=== PATIENT | male | born 1975 | race Caucasian/White ===

== ENCOUNTER 2017-07-17 09:17 | Emergency (ER) | payer OTHER ==
[~2017-07-17] VITALS: Ht 180.3 cm; Wt 121.0 kg
[~2017-07-17 09:17] MED LIST: LORA10TA51 PO; NXM/40 PO
[2017-07-17 09:23] VITALS: BP 150/99; PULSE 77; TEMP 36.8; O2SAT 97; Ht 180.3 cm; Wt 121.0 kg
--- NOTE | 2017-07-17 16:59 | EMERGENCY ROOM VISIT NOTE ---
ED Visit Note First contact with patient: 09:41 Chief complaint: Retained ousmane in scalp. HPI: This 42-year-old white male presents to the ER for removal of retained ousmane in the scalp. The patient denies any fevers, chills, sweats, nausea, redness, streaking, purulent drainage, pain with palpation, or other signs of infection. They have been keeping the wound clean and protected as directed. Pain is rated as 0/10. [place] have been in place for 11 days. No other complaints. Medical history, past surgical history, family history, social history, current medications, allergies, and tetanus status: All are unchanged from previous exam. Please see the chart from the initial wound repair visit. Physical exam Vitals: Afebrile. Reviewed and filed in patient's chart General: Well-developed, well-nourished, middle-aged white male, in no acute distress. He looks his stated age. Sitting on the bed, alert and oriented. No visible discomfort. Skin: Warm and dry with good turgor. No rashes or lesions. Ousmane are in place. Wound edges are well approximated. No erythema, edema, ecchymosis, purulent drainage, or warmth. No significant discomfort with palpation. Area is nonfluctuant. Neurologic: Gross sensation is intact around the wound via soft touch. Capillary refill is intact and is equal to the surrounding tissue. Impression: Healing laceration, crown of the scalp Plan: Ousmane were removed without event. Wound remained closed. No Steri- Strips were needed. Wound care precautions were reviewed. Watch for any signs of infection, or separation. Return to the ER as needed. Tylenol as needed for any discomfort. Elevated BP is thought to be situational. He may have it rechecked with his PCP if desired. Current/Historical Medications Scheduled Esomeprazole Magnesium (Nexium), 1 CAP PO DAILY Loratadine (Claritin), 10 MG PO DAILY Allergies Coded Allergies: Crab (Unverified Allergy, Unknown, ANAPHYLAXIS, 07/07/17) Vital Signs Date Time Temp Pulse Resp B/P (MAP) Pulse Ox O2 Delivery O2 Flow Rate FiO2 07/17/17 09:23 36.8 77 18 150/99 97 Departure Information Impression Primary Impression: Encounter for removal of ousmane Dispostion Home / Self-Care Condition GOOD Referrals No Doctor, Assigned (PCP) Forms HOME CARE DOCUMENTATION FORM, IMPORTANT VISIT INFORMATION Patient Instructions My [facility] [employer] Additional Instructions Avoid scratching at the scalp or digging at the scalp with a comb for the next week You may shower and wash your hair normally Massage the area gently starting in a week, to reduce the scar
== END 2017-07-17 09:58 | disposition home or self-care (01) ==
LOC: C.EDB 09:18 → C.EDA 09:58
DX: S01.01XD Laceration without foreign body of scalp, subsequent encounter (principal); W01.198D Fall on same level from slipping, tripping and stumbling with subsequent striking against other object, subsequent encounter; Z48.02 Encounter for removal of sutures